=== PATIENT | male | born 1970 | race Caucasian/White ===

== ENCOUNTER 2017-02-04 11:11 | Emergency (ER) | payer BC ==
[2017-02-04 12:22] VITALS: RESP 16
[2017-02-04] MEDS ORDERED: SODIUM CHLORIDE 0.9% 1,000 ML IV STA (12:37)
[2017-02-04 12:51] LABS: Aty Lym Flag Marked; CH 30.8; CHCM 33.8; HCT 46.6 % (39.0-53.0); HDW 2.25; HGB 15.4 gm/dL (13.0-17.5); MCH 30.1 pg (25.0-35.0); MCV 91.4 fL (80.0-100.0); MPO Flag Slight; Mean Platelet Volume 6.6; RBC 5.09 m/uL (4.30-5.90); WBC 7.3 k/uL (3.8-10.6)
--- NOTE | 2017-02-04 13:00 | ED ---
General Adult HPI - General Chief complaint: Abdominal Pain Stated complaint: kidney stone Time Seen by Provider: 02/04/17 12:32 Source: patient, RN notes reviewed Mode of arrival: ambulatory Limitations: no limitations - History of Present Illness Initial comments: Patient is a 46-year-old male with significant past medical history for kidney stones, who presents emergency room today with chief complaint of left sided flank pain. He does admit that he's had some pain that increased last night and burning sensation coming around to the front side of the abdomen. He does admit some nausea. He states only symptoms are consistent with kidney stones that is had in the past. He denies any other complaints associated symptoms. He states currently comfortable at this time. - Related Data Previous Rx's Medication Instructions Recorded Tamsulosin [Flomax] 0.4 mg PO DAILY #14 cap 02/04/17 Allergies Allergy/AdvReac Type Severity Reaction Status Date / Time No Known Allergies Allergy Verified 02/04/17 13:39 Review of Systems ROS Statement: Those systems with pertinent positive or pertinent negative responses have been documented in the HPI. ROS Other: All systems not noted in ROS Statement are negative. Past Medical History Additional Past Medical History / Comment(s): kidney stone History of Any Multi-Drug Resistant Organisms: None Reported Additional Past Surgical History / Comment(s): kidney stone removal Past Psychological History: No Psychological Hx Reported Smoking Status: Never smoker Past Alcohol Use History: Occasional Past Drug Use History: None Reported General Exam - General Exam Comments Initial Comments: General: The patient is awake and alert, in no distress, and does not appear acutely ill. Eye: Pupils are equal, round and reactive to light, extra-ocular movements are intact. No nystagmus. There is normal conjunctiva bilaterally. No signs of icterus. Ears, nose, mouth and throat: There are moist mucous membranes and no oral lesions. Neck: The neck is supple, there is no tenderness or JVD. Cardiovascular: There is a regular rate and rhythm. No murmur, rub or gallop is appreciated. Respiratory: Lungs are clear to auscultation, respirations are non-labored, breath sounds are equal. No wheezes, stridor, rales, or rhonchi. Gastrointestinal: Soft, non-distended, non-tender abdomen without masses or organomegaly noted. There is no rebound or guarding present. No CVA tenderness. Bowel sounds are unremarkable. Musculoskeletal: Normal ROM, no tenderness. Strength 5/5. Sensation intact. Pulses equal bilaterally 2+. Neurological: A&O x 3. CN II-XII intact, There are no obvious motor or sensory deficits. Coordination appears grossly intact. Speech is normal. Skin: Skin is warm and dry and no rashes or lesions are noted. Psychiatric: Cooperative, appropriate mood & affect, normal judgment. Limitations: no limitations Course Vital Signs 02/04/17 02/04/17 02/04/17 11:24 12:21 13:00 Temperature 98.6 F 98.0 F 98.2 F Pulse Rate 70 65 62 Respiratory 18 16 16 Rate Blood Pressure 133/79 134/73 141/89 O2 Sat by Pulse 98 97 99 Oximetry Medical Decision Making - Medical Decision Making Patient reexamined at this time shows no signs of distress. He is resting comfortably. He states not had any pain here today but was worse last night. States symptoms are consistent with kidney stones that is had in the past. States she's had multiple missing urologist. Patient's x-ray reviewed shows phlebolith in the lower pelvis. Patient's labs been reviewed and shows small white blood in the urine and no sign of infection. Remaining labs unremarkable. Patient will be discharged home she'll Flomax. He states he does not want any pain medication he uses [id number] as needed. Advised follow-up with his urologist or return here to the emergency room symptoms increase or worsen. - Lab Data Result diagrams: 02/04/17 12:45 02/04/17 12:45 Lab Results 02/04/17 02/04/17 02/04/17 Range/Units 12:45 12:45 12:45 WBC 7.3 (3.8-10.6) k/uL RBC 5.09 (4.30-5.90) m/uL Hgb 15.4 (13.0-17.5) gm/dL Hct 46.6 (39.0-53.0) % MCV 91.4 (80.0-100.0) fL MCH 30.1 (25.0-35.0) pg MCHC 33.0 (31.0-37.0) g/dL RDW 13.0 (11.5-15.5) % Plt Count 270 (150-450) k/uL Neutrophils % (Manual) 77.0 % Lymphocytes % (Manual) 15.0 % Monocytes % (Manual) 7.0 % Eosinophils % (Manual) 1.0 % Neutrophils # (Manual) 5.6 (1.3-7.7) k/uL Lymphocytes # (Manual) 1.1 (1.0-4.8) k/uL Monocytes # (Manual) 0.5 (0-1.0) k/uL Eosinophils # (Manual) 0.1 (0-0.7) k/uL Nucleated RBCs 0 (0-0) /100 WBC Manual Slide Review Performed RBC Morphology Normal Sodium 142 (137-145) mmol/L Potassium 4.1 (3.5-5.1) mmol/L Chloride 106 (98-107) mmol/L Carbon Dioxide 25 (22-30) mmol/L Anion Gap 11 mmol/L BUN 9 (9-20) mg/dL Creatinine 0.89 (0.66-1.25) mg/dL Est GFR (MDRD) Af Amer >60 (>60 ml/min/1.73 sqM) Est GFR (MDRD) Non-Af >60 (>60 ml/min/1.73 sqM) Glucose 89 (74-99) mg/dL Calcium 9.3 (8.4-10.2) mg/dL Total Bilirubin 1.2 (0.2-1.3) mg/dL AST 30 (17-59) U/L ALT 47 (21-72) U/L Alkaline Phosphatase 79 (38-126) U/L Total Protein 7.7 (6.3-8.2) g/dL Albumin 4.4 (3.5-5.0) g/dL Amylase 43 (30-110) U/L Lipase 86 (23-300) U/L Urine Color Light Yellow Urine Appearance Clear (Clear) Urine pH 5.0 (5.0-8.0) Ur Specific [place] 1.003 (1.001-1.035) Urine Protein Negative (Negative) Urine Glucose (UA) Negative (Negative) Urine Ketones Negative (Negative) Urine Blood Small H (Negative) Urine Nitrite Negative (Negative) Urine Bilirubin Negative (Negative) Urine Urobilinogen <2.0 (<2.0) mg/dL Ur Leukocyte Esterase Negative (Negative) Urine RBC <1 (0-5) /hpf Urine WBC 1 (0-5) /hpf Disposition Clinical Impression: Kidney stone Disposition: HOME SELF-CARE Condition: Good Instructions: Kidney Stones (ED) Additional Instructions: Please use medication as discussed. Please follow-up with urology/family doctor in the next 2 days of symptoms have not improved. Please return to emergency room if the symptoms increase or worsen or for any other concerns. Prescriptions: Tamsulosin [Flomax] 0.4 mg PO DAILY #14 cap Referrals: Alex Chacon MD [Primary Care Provider] - 1-2 days Mango Smith MD [STAFF PHYSICIAN] - 1-2 days Time of Disposition: 13:42
[2017-02-04 13:03] LABS: ALT 47 U/L (21-72); AST 30 U/L (17-59); Alkaline Phosphatase 79 U/L (38-126); Amylase 43 U/L (30-110); Anion Gap 11 mmol/L; Blood Urea Nitrogen 9 mg/dL (9-20); Calcium 9.3 mg/dL (8.4-10.2); Carbon Dioxide 25 mmol/L (22-30); Chloride 106 mmol/L (98-107); Glucose 89 mg/dL (74-99); Non-African American GFR(MDRD) >60 (>60 ml/min/1.73 sqM); Potassium 4.1 mmol/L (3.5-5.1); Sodium 142 mmol/L (137-145); Total Bilirubin 1.2 mg/dL (0.2-1.3); Total Protein 7.7 g/dL (6.3-8.2)
[2017-02-04 13:05] LABS: Appearance,Urine Clear (Clear); Bilirubin,Urine Negative (Negative); Glucose,Urine (UA) Negative (Negative); Ketones,Urine Negative (Negative); Leukocyte Esterase,Urine Negative (Negative); Nitrite,Urine Negative (Negative); Particle Count 644; Protein,Urine Negative (Negative); RBC,Urine <1 /hpf (0-5); Specific Gravity,Urine 1.003 (1.001-1.035); UA Billing (MACRO vs. MICRO) MICRO; Urobilinogen,Urine <2.0 mg/dL (<2.0); WBC,Urine 1 /hpf (0-5)
[2017-02-04 13:06] LABS: Add Differential Manual Differential
[2017-02-04 13:09] LABS: Manual Review Performed; Nucleated Red Blood Cells 0 /100 WBC (0-0); Total Cells Counted 100
[2017-02-04 13:10] LABS: RBC Morphology Normal
--- NOTE | 2017-02-04 13:21 | XR ---
EXAMINATION TYPE: XR KUB DATE OF EXAM: 02/04/2017 CLINICAL HISTORY: Left-sided abdominal pain, history of kidney stones. TECHNIQUE: 2 upright KUB images of the abdomen are obtained COMPARISON: Abdominal x-ray May 06, 2009. FINDINGS: Scattered gas is seen in non-distended small bowel loops. Gas and fecal material is seen in non-distended colon. Left 4 mm pelvic phlebolith is stable. There is no visceromegaly, pneumoperit oneum, or abnormal calcification appreciated. The lung bases are clear and the osseous structures a re intact. IMPRESSION: Overall nonobstructive bowel gas pattern. No definite nephrolithiasis.
[2017-02-04 14:11] VITALS: BP 136/84; PULSE 68; TEMP 98
== END 2017-02-04 14:09 | disposition home or self-care (01) ==
LOC: EC 11:11
DX: N20.0 Calculus of kidney (principal); R11.0 Nausea
CPT/HCPCS: 36415; 74000; 80053; 81001; 82150; 83690; 85025; 87086; 96360; 96361; 99284

== ENCOUNTER 2019-05-27 09:33 | Inpatient (IN) | payer BC ==
[2019-05-27] MEDS ORDERED: ACETAMINOPHEN TAB 325 MG TAB PO STA (10:03)
[2019-05-27] MEDS ORDERED: SODIUM CHLORIDE 0.9% 1,000 ML IV ONE (10:08)
--- NOTE | 2019-05-27 10:41 | ED ---
Fever HPI <FreddySouleymane - Last Filed: 05/27/19 11:37> - General Source: patient Mode of arrival: ambulatory Limitations: no limitations <Esther Morales - Last Filed: 05/27/19 12:50> - General Chief Complaint: Fever Stated Complaint: FEVER Time Seen by Provider: 05/27/19 09:53 - History of Present Illness Initial Comments: 48yol male presents emergency department for evaluation of high fever for 5 day s. Patient states she has had a fever for the past 5 days. Patient states that they'll aching headache when the fever is high however when the temperature lower she states the headache is almost nonexistent. Patient states he has been unable to control the fever with large quantities of ibuprofen and Tylenol. Patient states that he has no chest pain shortness of breath. He denies any sore throat ear pain. Denies any rash. He states he is up-to-date on his vaccinations. Patient denies any recent travel. Patient denies hemoptysis leg swelling. Patient denies any focalizing symptoms the fever he states he does not understand the cause. Patient states he presented to urgent care Tuesday reduced was most likely viral and sent home with antibiotics. Patient denies any neck stiffness he denies any sensitivity to light or vomiting. Patient denies abdominal pain or diarrhea. Remaining review of system negative. Upon arrival patient appears well however febrile with elevation of heart rate. Took ibuprofen within last 4 hours. (Esther Morales) - Related Data Home Medications Medication Instructions Recorded Confirmed Acetaminophen Tab [Tylenol Tab] 1,000 mg PO Q6HR PRN 05/27/19 05/27/19 Cephalexin [Keflex] 500 mg PO TID 05/27/19 05/27/19 Ibuprofen [Motrin] 600 mg PO Q6H PRN 05/27/19 05/27/19 Allergies Allergy/AdvReac Type Severity Reaction Status Date / Time No Known Allergies Allergy Verified 05/27/19 10:10 Review of Systems ROS Other: All systems not noted in ROS Statement are negative. <Souleymane Hayes - Last Filed: 05/27/19 11:37> ROS Other: All systems not noted in ROS Statement are negative. <Esther Morales - Last Filed: 05/27/19 12:50> ROS Statement: Those systems with pertinent positive or pertinent negative responses have been documented in the HPI. Past Medical History Additional Past Medical History / Comment(s): kidney stone History of Any Multi-Drug Resistant Organisms: None Reported Additional Past Surgical History / Comment(s): kidney stone removal Past Psychological History: No Psychological Hx Reported Smoking Status: Never smoker Past Alcohol Use History: Occasional Past Drug Use History: None Reported <Esther Morales - Last Filed: 05/27/19 12:50> General Exam Limitations: no limitations <Esther Morales - Last Filed: 05/27/19 12:50> - General Exam Comments Initial Comments: General: The patient is awake and alert, in no distress, diaphoretic Eye: +3 mm pupils are equal, round and reactive to light, extra-ocular movements are intact. No nystagmus. There is normal conjunctiva bilaterally. No signs of icterus. No photophobia Ears, nose, mouth and throat: There are moist mucous membranes and no oral lesions. Oropharynx was not erythematous there is no tonsillar enlargement exudates or lesions. Uvula midline. Tympanic membranes are not erythematous or is no effusions bulging or retraction. No tenderness to palpation of the m astoid. No anterior cervical lymphadenopathy. No tripoding, no drooling. Neck: The neck is supple, there is no tenderness or JVD. No nuchal rigidity Cardiovascular: There is a regular rate and rhythm. No murmur, rub or gallop is appreciated. Respiratory: Lungs are clear to auscultation, respirations are non-labored, breath sounds are equal. No wheezes, stridor, rales, or rhonchi. No retractions or abdominal breathing. Gastrointestinal: Soft, non-distended, non-tender abdomen without masses or organomegaly noted. There is no rebound or guarding present. Bowel sounds are unremarkable. Musculoskeletal: Normal ROM, no tenderness. Strength 5/5. Sensation intact. Radial pulses equal bilaterally 2+. Neurological: A&O x 3. CN II-XII intact, There are no obvious motor or sensory deficits. Coordination appears grossly intact. Speech appears normal, no muffling. Skin: Skin is warm and dry and no rashes or lesions are noted. No extremity edema Psychiatric: Cooperative (CarmenKimberliEsther L) Course Vital Signs 05/27/19 09:39 Temperature 99.4 F Pulse Rate 104 H Respiratory 18 Rate Blood Pressure 124/82 O2 Sat by Pulse 97 Oximetry Medical Decision Making - Lab Data Result diagrams: 05/27/19 10:20 05/27/19 10:20 <Souleymane Hayes - Last Filed: 05/27/19 11:37> - Lab Data Result diagrams: 05/27/19 10:20 05/27/19 10:20 <Esther Morales - Last Filed: 05/27/19 12:50> - Medical Decision Making Patient reevaluated by myself, Dr. Hayes. Patient resting comfortably in bed. Patient is updated on results and plan. Case was discussed in detail with Dr. Valdez with cardiology. He does recommend admission and heparinization. He states echo can be done tomorrow. He agrees with routine treatment for pneum onia and pulmonary consult. He will consult. Dr. Palomino has been paged for admission. Patient has been made aware of chest x-ray findings and need for follow-up chest x-ray in the near future after discharge. Dr. Palomino was contacted, who will admit covering for Dr. Rodriguez. (Souleymane Hayes) Patient presents for high fever x 5 days. No other focalizing symptoms. Patient denied chest pain. I had concern for possible myocarditis/PNA given tachycardia and high fever history. PNA (+) on CXR. Troponin returned elevated. EKG septal changes no known cardiac history. No acute ST elevation. Low intenisty per cardiology request as they were consulted as soon as troponin returned elevated by my attending Dr. Hayes. Echo ordered. ID and pulmonology per Dr. Hayes. Cardiology evaluated patient in the ER. Patient admitted to floor after discussing results. Patient agreeable with care plan and admission. Rocephin and azithromycin started per admitting provider request. (Esther Morales) - Lab Data Lab Results 05/27/19 05/27/19 05/27/19 Range/Units 10:20 10:20 10:20 WBC 9.1 (3.8-10.6) k/uL RBC 4.90 (4.30-5.90) m/uL Hgb 14.7 (13.0-17.5) gm/dL Hct 43.3 (39.0-53.0) % MCV 88.4 (80.0-100.0) fL MCH 30.1 (25.0-35.0) pg MCHC 34.1 (31.0-37.0) g/dL RDW 12.9 (11.5-15.5) % Plt Count 235 (150-450) k/uL Neutrophils % (Manual) 76 % Band Neutrophils % 3 % Lymphocytes % (Manual) 11 % Monocytes % (Manual) 10 % Neutrophils # (Manual) 7.10 (1.3-7.7) k/uL Lymphocytes # (Manual) 1.00 (1.0-4.8) k/uL Monocytes # (Manual) 0.91 (0-1.0) k/uL Nucleated RBCs 0 (0-0) /100 WBC Manual Slide Review Performed RBC Morphology Normal PT (9.0-12.0) sec INR (<1.2) APTT (22.0-30.0) sec Sodium 137 (137-145) mmol/L Potassium 5.0 (3.5-5.1) mmol/L Chloride 103 (98-107) mmol/L Carbon Dioxide 19 L (22-30) mmol/L Anion Gap 15 mmol/L BUN 12 (9-20) mg/dL Creatinine 1.04 (0.66-1.25) mg/dL Est GFR (CKD-EPI)AfAm >90 (>60 ml/min/1.73 sqM) Est GFR (CKD-EPI)NonAf 86 (>60 ml/min/1.73 sqM) Glucose 106 H (74-99) mg/dL Plasma Lactic Acid Jak 1.1 (0.7-2.0) mmol/L Calcium 9.0 (8.4-10.2) mg/dL Total Bilirubin 1.5 H (0.2-1.3) mg/dL AST 60 H (17-59) U/L ALT 23 (21-72) U/L Alkaline Phosphatase 90 (38-126) U/L Troponin I (0.000-0.034) ng/mL Total Protein 8.4 H (6.3-8.2) g/dL Albumin 4.2 (3.5-5.0) g/dL Urine Color Urine Appearance (Clear) Urine pH (5.0-8.0) Ur Specific [place] (1.001-1.035) Urine Protein (Negative) Urine Glucose (UA) (Negative) Urine Ketones (Negative) Urine Blood (Negative) Urine Nitrite (Negative) Urine Bilirubin (Negative) Urine Urobilinogen (<2.0) mg/dL Ur Leukocyte Esterase (Negative) Urine RBC (0-5) /hpf Urine WBC (0-5) /hpf Ur Squamous Epith Cells (0-4) /hpf Urine Bacteria (None) /hpf Urine Mucus (None) /hpf Influenza Type A RNA (Not Detectd) Influenza Type B (PCR) (Not Detectd) Group A Strep Rapid (Negative) 05/27/19 05/27/19 05/27/19 Range/Units 10:20 10:20 10:20 WBC (3.8-10.6) k/uL RBC (4.30-5.90) m/uL Hgb (13.0-17.5) gm/dL Hct (39.0-53.0) % MCV (80.0-100.0) fL MCH (25.0-35.0) pg MCHC (31.0-37.0) g/dL RDW (11.5-15.5) % Plt Count (150-450) k/uL Neutrophils % (Manual) % Band Neutrophils % % Lymphocytes % (Manual) % Monocytes % (Manual) % Neutrophils # (Manual) (1.3-7.7) k/uL Lymphocytes # (Manual) (1.0-4.8) k/uL Monocytes # (Manual) (0-1.0) k/uL Nucleated RBCs (0-0) /100 WBC Manual Slide Review RBC Morphology PT (9.0-12.0) sec INR (<1.2) APTT (22.0-30.0) sec Sodium (137-145) mmol/L Potassium (3.5-5.1) mmol/L Chloride (98-107) mmol/L Carbon Dioxide (22-30) mmol/L Anion Gap mmol/L BUN (9-20) mg/dL Creatinine (0.66-1.25) mg/dL Est GFR (CKD-EPI)AfAm (>60 ml/min/1.73 sqM) Est GFR (CKD-EPI)NonAf (>60 ml/min/1.73 sqM) Glucose (74-99) mg/dL Plasma Lactic Acid Jak (0.7-2.0) mmol/L Calcium (8.4-10.2) mg/dL Total Bilirubin (0.2-1.3) mg/dL AST (17-59) U/L ALT (21-72) U/L Alkaline Phosphatase (38-126) U/L Troponin I (0.000-0.034) ng/mL Total Protein (6.3-8.2) g/dL Albumin (3.5-5.0) g/dL Urine Color Dark Yellow Urine Appearance Cloudy (Clear) Urine pH 6.0 (5.0-8.0) Ur Specific [place] 1.049 H (1.001-1.035) Urine Protein 3+ H (Negative) Urine Glucose (UA) Negative (Negative) Urine Ketones 2+ H (Negative) Urine Blood Negative (Negative) Urine Nitrite Negative (Negative) Urine Bilirubin 1+ H (Negative) Urine Urobilinogen 8.0 (<2.0) mg/dL Ur Leukocyte Esterase Negative (Negative) Urine RBC 1 (0-5) /hpf Urine WBC 10 H (0-5) /hpf Ur Squamous Epith Cells 1 (0-4) /hpf Urine Bacteria Occasional H (None) /hpf Urine Mucus Many H (None) /hpf Influenza Type A RNA Not Detected (Not Detectd) Influenza Type B (PCR) Not Detected (Not Detectd) Group A Strep Rapid Negative (Negative) 05/27/19 05/27/19 Range/Units 10:20 10:20 WBC (3.8-10.6) k/uL RBC (4.30-5.90) m/uL Hgb (13.0-17.5) gm/dL Hct (39.0-53.0) % MCV (80.0-100.0) fL MCH (25.0-35.0) pg MCHC (31.0-37.0) g/dL RDW (11.5-15.5) % Plt Count (150-450) k/uL Neutrophils % (Manual) % Band Neutrophils % % Lymphocytes % (Manual) % Monocytes % (Manual) % Neutrophils # (Manual) (1.3-7.7) k/uL Lymphocytes # (Manual) (1.0-4.8) k/uL Monocytes # (Manual) (0-1.0) k/uL Nucleated RBCs (0-0) /100 WBC Manual Slide Review RBC Morphology PT 10.7 (9.0-12.0) sec INR 1.0 (<1.2) APTT 28.0 (22.0-30.0) sec Sodium (137-145) mmol/L Potassium (3.5-5.1) mmol/L Chloride (98-107) mmol/L Carbon Dioxide (22-30) mmol/L Anion Gap mmol/L BUN (9-20) mg/dL Creatinine (0.66-1.25) mg/dL Est GFR (CKD-EPI)AfAm (>60 ml/min/1.73 sqM) Est GFR (CKD-EPI)NonAf (>60 ml/min/1.73 sqM) Glucose (74-99) mg/dL Plasma Lactic Acid Jak (0.7-2.0) mmol/L Calcium (8.4-10.2) mg/dL Total Bilirubin (0.2-1.3) mg/dL AST (17-59) U/L ALT (21-72) U/L Alkaline Phosphatase (38-126) U/L Troponin I 1.940 H* (0.000-0.034) ng/mL Total Protein (6.3-8.2) g/dL Albumin (3.5-5.0) g/dL Urine Color Urine Appearance (Clear) Urine pH (5.0-8.0) Ur Specific [place] (1.001-1.035) Urine Protein (Negative) Urine Glucose (UA) (Negative) Urine Ketones (Negative) Urine Blood (Negative) Urine Nitrite (Negative) Urine Bilirubin (Negative) Urine Urobilinogen (<2.0) mg/dL Ur Leukocyte Esterase (Negative) Urine RBC (0-5) /hpf Urine WBC (0-5) /hpf Ur Squamous Epith Cells (0-4) /hpf Urine Bacteria (None) /hpf Urine Mucus (None) /hpf Influenza Type A RNA (Not Detectd) Influenza Type B (PCR) (Not Detectd) Group A Strep Rapid (Negative) - EKG Data EKG Comments: Ventricular rate 96 bpm, IL interval 156 ms, QRS ration 90 ms, QT/QTC 374/472 this is normal sinus rhythm T wave abnormalities noted in septal leads. EKG is interpreted, reviewed by my attending provider as cardiology. (Esther Morales) Disposition <Souleymane Hayes - Last Filed: 05/27/19 11:37> Is patient prescribed a controlled substance at d/c from ED?: No Time of Disposition: 11:42 Decision to Admit Reason: Admit from EC Decision Date: 05/27/19 Decision Time: 11:42 <Esther Morales - Last Filed: 05/27/19 12:50> Clinical Impression: Myocarditis, Fever, Pneumonia, Elevated troponin Disposition: ADMITTED IP TO THIS HOSP Condition: Serious Referrals: Antione Noel DO [Primary Care Provider] - 1-2 days
--- NOTE | 2019-05-27 10:50 | XR ---
EXAMINATION TYPE: XR chest 2V DATE OF EXAM: 05/27/2019 HISTORY: Fever. REFERENCE: None. FINDINGS: There is a 4.3 cm masslike density in the suprahilar region on the left. The remainder the lungs are clear. Pleural spaces are clear. The heart is not enlarged. IMPRESSION: MASSLIKE DENSITY IN THE SUPRAHILAR REGION ON THE LEFT MAY REPRESENT PNEUMONIA. [facility] EXCLUDE UNDERLYING NEOPLASM.
[2019-05-27 10:53] LABS: ALT 23 U/L (21-72); AST 60 U/L (17-59); African American GFR (CKD) >90 (>60 ml/min/1.73 sqM); Albumin 4.2 g/dL (3.5-5.0); Alkaline Phosphatase 90 U/L (38-126); Anion Gap 15 mmol/L; Blood Urea Nitrogen 12 mg/dL (9-20); Carbon Dioxide 19 mmol/L (22-30); Chloride 103 mmol/L (98-107); Glucose 106 mg/dL (74-99); Sodium 137 mmol/L (137-145); Total Bilirubin 1.5 mg/dL (0.2-1.3); Total Protein 8.4 g/dL (6.3-8.2)
[2019-05-27 10:56] LABS: Appearance,Urine Cloudy (Clear); Bacteria,Urine Occasional /hpf; Bilirubin,Urine 1+ (Negative); Blood,Urine Negative (Negative); Color,Urine Dark Yellow; Glucose,Urine (UA) Negative (Negative); Ketones,Urine 2+ (Negative); Leukocyte Esterase,Urine Negative (Negative); Mucus,Urine Many /hpf; Nitrite,Urine Negative (Negative); Protein,Urine 3+ (Negative); RBC,Urine 1 /hpf (0-5); Squamous Epithelial Cell,Urine 1 /hpf (0-4); WBC,Urine 10 /hpf (0-5)
[2019-05-27 10:57] LABS: Prothrombin Time 10.7 sec (9.0-12.0)
[2019-05-27 10:58] LABS: Specific Gravity,Urine 1.049 (1.001-1.035)
[2019-05-27 11:13] LABS: HCT 43.3 % (39.0-53.0); HGB 14.7 gm/dL (13.0-17.5); MCH 30.1 pg (25.0-35.0); MCHC 34.1 g/dL (31.0-37.0); MCV 88.4 fL (80.0-100.0); Mean Platelet Volume 7.5; Platelet Count 235 k/uL (150-450); RDW 12.9 % (11.5-15.5); WBC 9.1 k/uL (3.8-10.6)
[2019-05-27] MEDS ORDERED: AZITHROMYCIN 500 MG in SODIUM CHLORIDE 0.9% 250 ML IVPB STA (11:40)
[2019-05-27] MEDS ORDERED: HEPARIN SODIUM,PORCINE 5,000 UNIT/ML 1 ML VIAL IV ONE (11:41)
[2019-05-27] MEDS ORDERED: HEPARIN SODIUM,PORCINE 5,000 UNIT/ML 1 ML VIAL IV PRN (11:41)
[2019-05-27] MEDS ORDERED: NALOXONE 0.4 MG/ML 1 ML VIAL IV PRN (11:54)
[2019-05-27 12:14] LABS: Band Neutrophils % 3 %; Monocytes # (M) 0.91 k/uL (0-1.0); Neutrophils % (M) 76 %; Nucleated Red Blood Cells 0 /100 WBC (0-0); Total Cells Counted 100
[2019-05-27] MEDS: HEPARIN SOD,PORK IN 0.45% NACL 25,000 UNIT in 0.45% NACL 1 250ML.BAG IV SCH (12:36)
[2019-05-27] MEDS: SODIUM CHLORIDE 0.9% 1,000 ML IV SCH (13:14)
--- NOTE | 2019-05-27 13:17 | CONS ---
CONSULTATION Mr. Landry is a 48-year-old male with no prior cardiac history who is quite active physically, works in construction who for the last 4 days has been complaining of fever up to 104. He was seen in a walk-in clinic yesterday, was started on antibiotics but persisted in having a temperature again this morning. Came into the emergency room. He has associated diaphoresis and chills. He has mild dyspnea. No significant cough. No wheezing. He has no chest discomfort. No dizziness or palpitation. No PND, orthopnea, or peripheral edema. He has no prior cardiac history or cardiac workup. In the emergency room, he was noted to have elevated troponin and an abnormal chest x-ray. His coronary risk factors are negative for hypertension, hyperlipidemia, and diabetes mellitus. He is a nonsmoker. MEDICATIONS: His medications at home included the antibiotics that was started yesterday in the form of Keflex 500 mg 3 times a day. REVIEW OF SYSTEMS: RESPIRATORY system: He has the temperature but no wheezing. No cough. No history of obstructive lung disease. GI system: No recent GI bleeding. No peptic ulcer disease. system: No dysuria or hematuria. Had a prior history of renal stone. NERVOUS SYSTEM: No stroke or seizure. SOCIAL HISTORY: Rare alcohol intake. Nonsmoker. PHYSICAL EXAMINATION: He is a 48-year-old male, alert, oriented, in no apparent distress. Blood pressure 124/80 with a heart rate in the 90s. HEAD: Normocephalic. Eyes: Sclerae anicteric. NECK: Good upstroke. No bruit. No jugular venous distention. LUNGS: Clear to auscultation. HEART: Regular rate and rhythm, S1, S2. No S3. No S4. No murmur or rub. ABDOMEN: Soft, nontender. Positive bowel sounds. No organomegaly. EXTREMITIES: No edema. Intact distal pulses. LAB DATA: Lab data revealed a hemoglobin of 14.7, white blood cell of 9.1, platelet count 235, BUN and creatinine 12 and 1.04, total bilirubin 1.5, AST of 60, troponin of 1.94. EKG revealed sinus mechanism with QS in V1 to V2 and poor R-wave progression. Chest x-ray revealed a suprahilar masslike density on the left side. IMPRESSION: 1. Febrile episode of unclear etiology with no symptoms of cough, but yet with an abnormal chest x-ray. Patient being treated for possible pneumonia. 2. Elevated troponin with no associated symptoms. Those findings could represent a type 2 presentation with no evidence to suggest acute ischemic event. 3. Elevated bilirubin of unclear etiology. RECOMMENDATIONS: From the cardiac standpoint, I will obtain echocardiogram with Doppler. I will obtain serial enzymes. I do not believe that we are dealing with a primary ischemic event. The patient will be seen by Dr. Ibarra regarding his pulmonary status and depending on the outcome of his testing, further recommendations will be made. I have discussed those findings with the patient and he is full understanding and agreement. Thank you for this consult. We will follow with you. CIERRAL / IJN: [id number] /
--- NOTE | 2019-05-27 14:25 | CT ---
EXAMINATION TYPE: CT chest wo con DATE OF EXAM: 05/27/2019 COMPARISON: None. HISTORY: Myocarditis CT DLP: 479.6 mGycm. Automated Exposure Control for Dose Reduction was Utilized. TECHNIQUE: CT scan of the thorax is performed without IV contrast. FINDINGS: There is patchy consolidation in the left upper and lower lobes. There is a small associate d pleural effusion. There is minimal atelectasis at the right lung base. The major bronchi are patent. There is no significant axillary or mediastinal adenopathy. I cannot exclude some left-sided lymph no ailyn in the left hilum. There is a small 6.6 mm pericardial effusion anteriorly. The heart is not enlarged. Visualized structures in the upper abdomen are unremarkable. No bony lesion is seen. IMPRESSION: 1. PATCHY CONSOLIDATION THROUGHOUT THE LEFT LUNG. 2. SMALL LEFT PLEURAL EFFUSION. 3. MINIMAL PERICARDIAL FLUID.
[2019-05-27] MEDS ORDERED: ONDANSETRON 4 MG/2 ML VIAL IVP PRN (14:46)
--- NOTE | 2019-05-27 15:25 | P.HPIM ---
History of Present Illness H&P Date: 05/27/19 48 years old male with no significant past medical history presents in with fever of 104 for the past 5 days associated with tiredness. Patient denies any shortness of breath, dizziness lightheadedness, nausea or vomiting cough or shortness of breath. He denies any close sick contacts or any recent travel history. 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 Vitals in the ER suggestive of 98.4 pulse of 97 respiratory rate 26 blood pressure 1:30/88. On evaluation of blood work patient has a WBC of 9.1 and creatinine 1.04 hemoglobin 14.7 initial troponin of 1.94 total bilirubin 1.5 AST 60. Chest x-ray suggestive 4.3 cm mass in the left lung. Computed tomography scan of the chest was ordered that suggested patchy consolidation in the left upper and lower lobe. A small 6.6 cm pericardial effusion is seen. EKG is positive for Q waves in the anterior leads and down T- wave flattening in in the anterior leads. Echocardiogram is ordered for tomorrow patient's placed on heparin drip. Rocephin and azithromycin initiated. Pulmonary consulted. Strep pneumonia and urinary antigen atenolol ordered Review of Systems Constitutional: Denies chills, endorses fever and lethargy Denies poor appetite, Denies weakness, Denies weight loss Eyes: denies decreased vision, denies diplopia, denies discharge, denies pain Ears: deny: decreased hearing Ears, nose, mouth and throat: Denies dental pain, Denies headache, Denies nasal discharge, Denies nose pain Cardiovascular: Denies chest pain, Denies decreased exercise tolerance, Denies edema, Denies high blood pressure, Denies irregular heart beat, Denies palpitations, Denies paroxysmal nocturnal dyspnea, Denies rapid heart beat, Denies shortness of breath Respiratory: Denies congestion, Denies cough, Denies cough with sputum, Denies dyspnea, Denies home oxygen, Denies wheezing Gastrointestinal: Denies abdominal pain, Denies change in bowel habits, Denies coffee ground emesis, Denies early satiety, Denies excessive gas, Denies hea rtburn, Denies hematemesis, Denies hematochezia, Denies loss of appetite, Denies nausea, Denies vomiting Genitourinary: Denies dysuria, Denies flank pain, Denies kidney stones, Denies menorrhagia, Denies urgency, Denies urinary frequency Musculoskeletal: Denies gait dysfunction, Denies limitation of motion, Denies morning stiffness, Denies muscle cramps Integumentary: Denies rash, Denies wounds, Denies brittle nails, Denies change in hair/nails, Denies darkening of skin Neurological: Denies balance difficulties, Denies change in speech, Denies double vision, Denies gait dysfunction, Denies loss of vision, Denies motor disturbance, Denies numbness, Denies paralysis, Denies paresthesias, Denies seizures Psychiatric: Denies anxiety, Denies depression Endocrine: Denies excessive sweating, Denies excessive thirst, Denies high blood sugars, Denies palpitations Hematologic/Lymphatic: Denies easy bruising, Denies lymphadenopathy Past Medical History Additional Past Medical History / Comment(s): kidney stone History of Any Multi-Drug Resistant Organisms: None Reported Additional Past Surgical History / Comment(s): kidney stone removal Past Psychological History: No Psychological Hx Reported Smoking Status: Never smoker Past Alcohol Use History: Occasional Past Drug Use History: None Reported Medications and Allergies Home Medications Medication Instructions Recorded Confirmed Type Acetaminophen Tab [Tylenol Tab] 1,000 mg PO Q6HR PRN 05/27/19 05/27/19 History Cephalexin [Keflex] 500 mg PO TID 05/27/19 05/27/19 History Ibuprofen [Motrin] 600 mg PO Q6H PRN 05/27/19 05/27/19 History Allergies Allergy/AdvReac Type Severity Reaction Status Date / Time No Known Allergies Allergy Verified 05/27/19 10:10 Physical Exam Vitals: Vital Signs Temp Pulse Pulse Resp BP BP Pulse Ox 05/27/19 14:08 98.6 F 98 16 128/85 99 05/27/19 13:12 98.4 F 05/27/19 12:40 99 24 141/89 96 05/27/19 12:30 97 26 H 130/88 96 05/27/19 12:20 92 24 130/88 96 05/27/19 12:10 100 25 H 130/88 97 05/27/19 12:00 98 20 129/91 97 05/27/19 11:50 98 29 H 129/91 95 05/27/19 11:40 95 24 129/91 96 05/27/19 11:30 98 30 H 133/87 96 05/27/19 11:20 85 29 H 133/87 96 05/27/19 11:17 89 37 H 05/27/19 09:39 99.4 F 104 H 18 124/82 97 Intake and Output 05/27/19 05/27/19 05/27/19 06:59 14:59 22:59 Other: Weight 88.451 kg - Constitutional General appearance: cooperative, no acute distress, obese - EENT Eyes: anicteric sclerae, PERRLA, normal appearance ENT: hearing grossly normal - Neck Neck: no lymphadenopathy, normal ROM, no other, no rigidity, no stridor, no thyromegaly - Respiratory Respiratory: bilateral: CTA, negative: diminished, dullness, rales, rhonchi - Cardiovascular Rhythm: regular Heart sounds: normal: S1, S2 Abnormal Heart Sounds: no systolic murmur, no diastolic murmur, no rub, S3 gallop, no S4 Gallop, no click, no other - Gastrointestinal General gastrointestinal: normal bowel sounds, soft - Integumentary Integumentary: no rash - Neurologic Neurologic: CNII-XII intact - Musculoskeletal Musculoskeletal: gait normal, strength equal bilaterally - Psychiatric Psychiatric: A&O x's 3, appropriate affect Results CBC & Chem 7: 05/27/19 10:20 05/27/19 10:20 Labs: Abnormal Lab Results - Last 24 Hours (Table) 05/27/19 05/27/19 05/27/19 Range/Units 10:20 10:20 10:20 Carbon Dioxide 19 L (22-30) mmol/L Glucose 106 H (74-99) mg/dL Total Bilirubin 1.5 H (0.2-1.3) mg/dL AST 60 H (17-59) U/L Creatine Kinase (55-170) U/L Troponin I 1.940 H* (0.000-0.034) ng/mL Total Protein 8.4 H (6.3-8.2) g/dL Ur Specific [place] 1.049 H (1.001-1.035) Urine Protein 3+ H (Negative) Urine Ketones 2+ H (Negative) Urine Bilirubin 1+ H (Negative) Urine WBC 10 H (0-5) /hpf Urine Bacteria Occasional H (None) /hpf Urine Mucus Many H (None) /hpf 05/27/19 Range/Units 10:20 Carbon Dioxide (22-30) mmol/L Glucose (74-99) mg/dL Total Bilirubin (0.2-1.3) mg/dL AST (17-59) U/L Creatine Kinase 214 H (55-170) U/L Troponin I (0.000-0.034) ng/mL Total Protein (6.3-8.2) g/dL Ur Specific [place] (1.001-1.035) Urine Protein (Negative) Urine Ketones (Negative) Urine Bilirubin (Negative) Urine WBC (0-5) /hpf Urine Bacteria (None) /hpf Urine Mucus (None) /hpf Thrombosis Risk Factor Assmnt - DVT/VTE Prophylaxis DVT/VTE Prophylaxis: Mechanical Prophylaxis ordered Assessment and Plan Plan: #1 sepsis secondary to community-acquired pneumonia. Computed tomography scan positive for left upper and lower consolidation Mycoplasma, Legionella, anterom edial, strep throat ordered. Pro-calcitonin ordered. CRP ordered. Continue IV fluids at 50 mL per hour pulmonary consult placed #2 acute troponinemia likely secondary to viral myocarditis/pericarditis repeat troponin every 6 hours. Elevated troponin with EKG changes consistent with myocarditis Echocardiogram ordered, cardiology consult placed EKG with positive Q waves. CT chest positive for small pericardial effusion continue heparin drip prophylactically until the embolism is ruled out #3 hyper bilirubinemia of unclear etiology patient is non-alcoholic. Ultrasound liver ordered to evaluate for fatty liver disease #4 DVT prophylaxis with SCDs #5 disposition patient may need at least 1-2 inpatient night for stabilization
--- NOTE | 2019-05-27 17:32 | US ---
EXAMINATION TYPE: US liver DATE OF EXAM: 05/27/2019 COMPARISON: CT, US CLINICAL HISTORY: hyperbilirubinemia; fever (patient stated took Tylenol x 5 days to reduce fever), h istory of renal stones EXAM MEASUREMENTS: Liver Length: 16.8 cm Gallbladder Wall: 0.2 cm CBD: 0.4 cm Right Kidney: 10.7 x 6.2 x 5.4 cm Pancreas: Obscured by bowel gas Liver: fatty liver with areas of focal fatty sparing in right lobe Gallbladder: wnl Evidence for sonographic Gilliam's sign: no CBD: wnl Right Kidney: wnl IMPRESSION: There is evidence of fatty infiltration of the liver. No gallstones or dilated ducts.
[2019-05-27] MEDS: ACETAMINOPHEN TAB 325 MG TAB PO PRN (19:54)
[2019-05-28] MEDS: ACETAMINOPHEN TAB 325 MG TAB PO PRN ×2 (02:44→15:31)
[2019-05-28 03:40] LABS: HCT 38.1 % (39.0-53.0); HGB 13.1 gm/dL (13.0-17.5); MCH 30.5 pg (25.0-35.0); MCHC 34.5 g/dL (31.0-37.0); MCV 88.3 fL (80.0-100.0); Mean Platelet Volume 6.4; Platelet Count 254 k/uL (150-450); RBC 4.31 m/uL (4.30-5.90); RDW 12.9 % (11.5-15.5)
[2019-05-28 03:48] LABS: African American GFR (CKD) >90 (>60 ml/min/1.73 sqM); Anion Gap 10 mmol/L; Blood Urea Nitrogen 8 mg/dL (9-20); Calcium 8.1 mg/dL (8.4-10.2); Carbon Dioxide 22 mmol/L (22-30); Chloride 104 mmol/L (98-107); Cholesterol 112 mg/dL (<200); Glucose 98 mg/dL (74-99); HDL Cholesterol 27 mg/dL (40-60); LDL Cholesterol,Calculated 58 mg/dL (0-99); Potassium 3.5 mmol/L (3.5-5.1); Sodium 136 mmol/L (137-145); Triglycerides 134 mg/dL (<150)
[2019-05-28 04:31] LABS: Neutrophils % (M) 75 %; Nucleated Red Blood Cells 0 /100 WBC (0-0); Total Cells Counted 100
[2019-05-28] MEDS: HEPARIN SOD,PORK IN 0.45% NACL 25,000 UNIT in 0.45% NACL 1 250ML.BAG IV SCH (06:40)
[2019-05-28] MEDS: ASPIRIN 81 MG PO SCH (08:54)
[2019-05-28] MEDS: SODIUM CHLORIDE 0.9% 1,000 ML IV SCH (08:55)
[2019-05-28] MEDS ORDERED: ASPIRIN 325 MG TAB PO SCH (09:00)
[2019-05-28] MEDS ORDERED: IPRATROPIUM-ALBUTEROL 3 ML NEB INHALATION PRN (09:56)
--- NOTE | 2019-05-28 10:37 | ECHOF ---
Referral Reason:fever, elevated troponin concern for myocarditis MEASUREMENTS -------- HEIGHT: 175.3 cm WEIGHT: 91.2 kg BP: 137/76 RVIDd: 3.3 cm (< 3.3) IVSd: 1.4 cm (0.6 - 1.1) LVIDd: 4.6 cm (3.9 - 5.3) LVPWd: 1.3 cm (0.6 - 1.1) IVSs: 1.8 cm LVIDs: 3.1 cm LVPWs: 1.9 cm LA Diam: 4.2 cm (2.7 - 3.8) LAESV Index (A-L): 26.78 ml/m Ao Diam: 3.3 cm (2.0 - 3.7) AV Cusp: 2.2 cm (1.5 - 2.6) MV EXCURSION: 26.030 mm (> 18.000) MV EF SLOPE: 219 mm/s (70 - 150) EPSS: 0.2 cm MV E Artur: 0.94 m/s MV DecT: 206 ms MV A Artur: 0.79 m/s MV E/A Ratio: 1.19 RAP: 5.00 mmHg RVSP: 24.18 mmHg TAPSE: 25.77 mm FINDINGS -------- Sinus rhythm. This was a technically adequate study. The left ventricular size is normal. There is moderate concentric left ventricular hypertrophy. O verall left ventricular systolic function is normal with, an EF between 55 - 60 %. The diastolic fi lling pattern is normal for the age of the patient 8.01. The right ventricle is mildly enlarged. Normal LA size by volume 22+/-6 ml/m2. The right atrial size is normal. Interatrial and interventricular septum intact. The aortic valve is trileaflet, and appears structurally normal. No aortic stenosis or regurgitation. The mitral valve is normal. Mild mitral regurgitation is present. Trace tricuspid regurgitation present. Right ventricular systolic pressure is normal at < 35 mmHg. The right ventricular systolic pressure, as measured by Doppler, is 24.18mmHg. There is no pulmonic regurgitation present. The aortic root size is normal. Normal inferior vena cava with normal inspiratory collapse consistent with estimated right atrial pre ssure of 5 mmHg. There is no pericardial effusion. CONCLUSIONS -------- 1. Sinus rhythm. 2. This was a technically adequate study. 3. The left ventricular size is normal. 4. There is moderate concentric left ventricular hypertrophy. 5. Overall left ventricular systolic function is normal with, an EF between 55 - 60 %. 6. The diastolic filling pattern is normal for the age of the patient 8.01 7. The right ventricle is mildly enlarged. 8. Normal LA size by volume 22+/-6 ml/m2. 9. The aortic valve is trileaflet, and appears structurally normal. No aortic stenosis or regurgitati on. 10. Mild mitral regurgitation is present. 11. Trace tricuspid regurgitation present. 12. Right ventricular systolic pressure is normal at < 35 mmHg. 13. There is no pulmonic regurgitation present. 14. The aortic root size is normal. 15. Normal inferior vena cava with normal inspiratory collapse consistent with estimated right atrial pressure of 5 mmHg. 16. There is no pericardial effusion. DIVIDER OPERATOR: Lashaun Caicedo RDCS
[2019-05-28] MEDS: AZITHROMYCIN 500 MG TAB PO SCH (11:05)
[2019-05-28] MEDS: guaiFENesin 600 MG TABLET.ER PO SCH ×2 (11:05→21:35)
[2019-05-28 11:38] LABS: Procalcitonin 2.02 ng/mL (0.02-0.09)
[2019-05-28 13:49] VITALS: BMI 29.7
--- NOTE | 2019-05-28 15:33 | P.PN ---
Subjective Progress Note Date: 05/28/19 48 years old male with no significant past medical history presents in with fever of 104 for the past 5 days associated with tiredness. Patient denies any shortness of breath, dizziness lightheadedness, nausea or vomiting cough or shortness of breath. He denies any close sick contacts or any recent travel history. 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 Vitals in the ER suggestive of 98.4 pulse of 97 respiratory rate 26 blood pressure 1:30/88. On evaluation of blood work patient has a WBC of 9.1 and creatinine 1.04 hemoglobin 14.7 initial troponin of 1.94 total bilirubin 1.5 AST 60. Chest x-ray suggestive 4.3 cm mass in the left lung. Computed tomography scan of the chest was ordered that suggested patchy consolidation in the left upper and lower lobe. A small 6.6 cm pericardial effusion is seen. EKG is positive for Q waves in the anterior leads and down T- wave flattening in in the anterior leads. Echocardiogram is ordered for tomorrow patient's placed on heparin drip. Rocephin and azithromycin initiated. Pulmonary consulted. Strep pneumonia and urinary antigen atenolol ordered 05/28: Patient states that he is feeling a little better from yesterday. He states he's had no fevers documented since 4 AM. He denies any dizziness or lightheadedness. He does have a cough with a small amount of phlegm production. He has not been able to collect a specimen for sputum as of yet. Echocardiogram reveals EF of 55-60%, trace tricuspid regurgitation. Liver ultrasound showed evidence of fatty infiltration. No gallstones or dilated ducts. Patient has been advised to loose weight to improve the fatty liver. Patient was seen yesterday by Dr. Valdez and acute coronary syndrome has been ruled out. Repeat troponins have been 1.050 and 0.968. Heterophile antibody negative. Heparin drip was discontinued. Sed rate elevated at 75, CRP elevated at 263, pro calcitonin elevated at 2.02, group A strep screen negative. C holesterol 112, triglyceride 134, LDL 58, HDL 27. Patient is also followed by pulmonary medicine. Will transfer patient to [facility] floor without telemetry. Anticipate possible discharge by tomorrow. Objective - Vital Signs Vital signs: Vital Signs Temp 99.0 F 05/28/19 08:00 Pulse 92 05/28/19 08:00 Resp 16 05/28/19 08:00 BP 125/75 05/28/19 08:00 Pulse Ox 99 05/28/19 08:00 Intake & Output 05/27/19 05/28/19 05/28/19 18:59 06:59 18:59 Intake Total 2150 415.922 125 Balance 2150 415.922 125 Weight 88.451 kg 91.2 kg Intake: IV 1550 200 Azithromycin 500 mg In 250 Sodium Chloride 0.9% 250 ml @ 250 mls/hr IVPB ONCE STA Rx#:[id number] Sodium Chloride 0.9% 1, 250 200 000 ml @ 50 mls/hr IV . Q20H KRUNAL Rx#:[id number] Sodium Chloride 0.9% 1, 1000 000 ml @ 999 mls/hr IV . Q1H1M ONE Rx#:[id number] cefTRIAXone 1 gm In 50 Sodium Chloride 0.9% 50 ml @ 100 mls/hr IVPB ONCE STA Rx#:[id number] Intake, IV Titration 215.922 Amount Heparin Sod,Pork in 0.45% 215.922 NaCl 25,000 unit In 0.45 % NaCl 1 250ml.bag @ 11.3 UNITS/KG/HR 9.995 mls/hr IV .Q24H KRUNAL Rx#: [id number] Oral 600 125 Other: # Voids 1 - Exam Review of Systems Constitutional: Denies chills, endorses fever and lethargy-improving Denies poor appetite, Denies weakness, Denies weight loss Eyes: denies decreased vision, denies diplopia, denies discharge, denies pain Ears: deny: decreased hearing Ears, nose, mouth and throat: Denies dental pain, Denies headache, Denies nasal discharge, Denies nose pain Cardiovascular: Denies chest pain, Denies decreased exercise tolerance, Denies edema, Denies high blood pressure, Denies irregular heart beat, Denies palp itations, Denies paroxysmal nocturnal dyspnea, Denies rapid heart beat, Denies shortness of breath Respiratory: Denies congestion, reports cough, reports cough with sputum, Denies dyspnea, Denies home oxygen, Denies wheezing Gastrointestinal: Denies abdominal pain, Denies change in bowel habits, Denies coffee ground emesis, Denies early satiety, Denies excessive gas, Denies heartburn, Denies hematemesis, Denies hematochezia, Denies loss of appetite, Denies nausea, Denies vomiting Genitourinary: Denies dysuria, Denies flank pain, Denies kidney stones, Denies menorrhagia, Denies urgency, Denies urinary frequency Musculoskeletal: Denies gait dysfunction, Denies limitation of motion, Denies morning stiffness, Denies muscle cramps Integumentary: Denies rash, Denies wounds, Denies brittle nails, Denies change in hair/nails, Denies darkening of skin Neurological: Denies balance difficulties, Denies change in speech, Denies double vision, Denies gait dysfunction, Denies loss of vision, Denies motor disturbance, Denies numbness, Denies paralysis, Denies paresthesias, Denies seizures Psychiatric: Denies anxiety, Denies depression Endocrine: Denies excessive sweating, Denies excessive thirst, Denies high blood sugars, Denies palpitations Hematologic/Lymphatic: Denies easy bruising, Denies lymphadenopathy - Constitutional General appearance: cooperative, no acute distress, obese, resting in bed - EENT Eyes: anicteric sclerae, PERRLA, normal appearance ENT: hearing grossly normal - Neck Neck: no lymphadenopathy, normal ROM, no other, no rigidity, no stridor, no thyromegaly - Respiratory Respiratory: bilateral: CTA, negative: diminished, dullness, rales, rhonchi - Cardiovascular Rhythm: regular Heart sounds: normal: S1, S2 Abnormal Heart Sounds: no systolic murmur, no diastolic murmur, no rub, S3 gallop, no S4 Gallop, no click, no other - Gastrointestinal General gastrointestinal: normal bowel sounds, soft - Integumentary Integumentary: no rash - Neurologic Neurologic: CNII-XII intact - Musculoskeletal Musculoskeletal: gait normal, strength equal bilaterally - Psychiatric Psychiatric: A&O x's 3, appropriate affect - Labs CBC & Chem 7: 05/28/19 03:14 05/28/19 03:14 Labs: Abnormal Lab Results - Last 24 Hours (Table) 05/27/19 05/27/19 05/27/19 Range/Units 10:20 10:20 10:20 Hct (39.0-53.0) % ESR (0-15) mm/hr APTT (22.0-30.0) sec Sodium (137-145) mmol/L Carbon Dioxide 19 L (22-30) mmol/L BUN (9-20) mg/dL Glucose 106 H (74-99) mg/dL Calcium (8.4-10.2) mg/dL Total Bilirubin 1.5 H (0.2-1.3) mg/dL AST 60 H (17-59) U/L Creatine Kinase (55-170) U/L Troponin I 1.940 H* (0.000-0.034) ng/mL C-Reactive Protein (<10.0) mg/L Total Protein 8.4 H (6.3-8.2) g/dL HDL Cholesterol (40-60) mg/dL Ur Specific [place] 1.049 H (1.001-1.035) Urine Protein 3+ H (Negative) Urine Ketones 2+ H (Negative) Urine Bilirubin 1+ H (Negative) Urine WBC 10 H (0-5) /hpf Urine Bacteria Occasional H (None) /hpf Urine Mucus Many H (None) /hpf 05/27/19 05/27/19 05/27/19 Range/Units 10:20 16:52 16:52 Hct (39.0-53.0) % ESR (0-15) mm/hr APTT (22.0-30.0) sec Sodium (137-145) mmol/L Carbon Dioxide (22-30) mmol/L BUN (9-20) mg/dL Glucose (74-99) mg/dL Calcium (8.4-10.2) mg/dL Total Bilirubin (0.2-1.3) mg/dL AST (17-59) U/L Creatine Kinase 214 H (55-170) U/L Troponin I 1.050 H* (0.000-0.034) ng/mL C-Reactive Protein 263.9 H (<10.0) mg/L Total Protein (6.3-8.2) g/dL HDL Cholesterol (40-60) mg/dL Ur Specific [place] (1.001-1.035) Urine Protein (Negative) Urine Ketones (Negative) Urine Bilirubin (Negative) Urine WBC (0-5) /hpf Urine Bacteria (None) /hpf Urine Mucus (None) /hpf 05/27/19 05/27/19 05/27/19 Range/Units 19:14 19:22 22:11 Hct (39.0-53.0) % ESR 75 H (0-15) mm/hr APTT 33.3 H (22.0-30.0) sec Sodium (137-145) mmol/L Carbon Dioxide (22-30) mmol/L BUN (9-20) mg/dL Glucose (74-99) mg/dL Calcium (8.4-10.2) mg/dL Total Bilirubin (0.2-1.3) mg/dL AST (17-59) U/L Creatine Kinase (55-170) U/L Troponin I 0.968 H* (0.000-0.034) ng/mL C-Reactive Protein (<10.0) mg/L Total Protein (6.3-8.2) g/dL HDL Cholesterol (40-60) mg/dL Ur Specific [place] (1.001-1.035) Urine Protein (Negative) Urine Ketones (Negative) Urine Bilirubin (Negative) Urine WBC (0-5) /hpf Urine Bacteria (None) /hpf Urine Mucus (None) /hpf 05/28/19 05/28/19 05/28/19 Range/Units 03:14 03:14 03:14 Hct 38.1 L (39.0-53.0) % ESR (0-15) mm/hr APTT 37.9 H (22.0-30.0) sec Sodium 136 L (137-145) mmol/L Carbon Dioxide (22-30) mmol/L BUN 8 L (9-20) mg/dL Glucose (74-99) mg/dL Calcium 8.1 L (8.4-10.2) mg/dL Total Bilirubin (0.2-1.3) mg/dL AST (17-59) U/L Creatine Kinase (55-170) U/L Troponin I (0.000-0.034) ng/mL C-Reactive Protein (<10.0) mg/L Total Protein (6.3-8.2) g/dL HDL Cholesterol 27 L (40-60) mg/dL Ur Specific [place] (1.001-1.035) Urine Protein (Negative) Urine Ketones (Negative) Urine Bilirubin (Negative) Urine WBC (0-5) /hpf Urine Bacteria (None) /hpf Urine Mucus (None) /hpf Microbiology - Last 24 Hours (Table) 05/27/19 10:20 Urine Culture - Preliminary Urine,Clean Catch 05/27/19 10:20 Group A Strep Throat Culture - Preliminary Throat Assessment and Plan Plan: #1 sepsis secondary to community-acquired pneumonia. Computed tomography scan positive for left upper and lower consolidation. Mycoplasma, Legionella pending. Pro-calcitonin CRP and sed rate all elevated. Strep screen negative. strep throat ordered. Pro-calcitonin ordered. CRP ordered. IV fluids will be transitioned to saline lock. Pulmonary consult. Continue azathioprine by 7 ceftriaxone #2 acute troponinemia. Echocardiogram ordered, cardiology consult appreciated. Acute coronary syndrome ruled out. Heparin drip has been discontinued. #3 hyper bilirubinemia secondary to fatty liver disease. #4 DVT prophylaxis with SCDs Discharge plan: Home tomorrow Impression and plan of care have been directed as dictated by the signing physician. Julissa Dockery nurse practitioner acting as scribe for signing physician.
--- NOTE | 2019-05-28 16:55 | P.CNPUL ---
History of Present Illness Consult date: 05/28/19 Requesting physician: Celestine Luevano Chief complaint: Febrile illness History of present illness: This is a 48-year-old white male patient of Dr. Noel with no significant medical history other than streaky of kidney stones in the past, who came into the emergency department on 05/27/2019 with complaints of high fever for 5 days. His fevers were as high as 103 and 104F, patient was experiencing headache when febrile, patient was taking large quantities of ibuprofen and Tylenol. Denied any shortness of breath, denied any cough or congestion, denied any sore throat or ear pain, denied any rash, no recent travel, no hemoptysis, no chest pain, no leg swelling, no nausea vomiting, no stiff neck. Patient presented to urgent care clinic on Tuesday and was told that the illness was most likely viral, but was sent home with antibiotics. On Tuesday on 05/27/2019 patient came in because of persistent febrile illness and tachycardia despite the ibuprofen, chest x-ray in the emergency department showed masslike density in the suprahilar region of the left lung. CT chest showed patchy consolidation throughout the left lung, small left pleural effusion and minimal pericardial fluid. Lab work was negative for any leukocytosis, white blood cell count was 9.1, coagulation profile was within normal limits, serum sodium was 137, potassium is 5.0, chloride was 103, CO2 is 19, B1 is 12 creatinine 1.04, plasma lactic acid was 1.1, bilirubin was elevated 1.5, AST was 60, ALT was 23, CK was 214, troponins were positive at 0.968, 1.050, and 1.940, patient was started on Rocephin and azithromycin, and we were asked to see the patient in regards to the left upper and lower lobe consolidation Review of Systems All systems: negative Constitutional: Reports chills, Reports fever Eyes: denies blurred vision, denies pain Ears, nose, mouth and throat: Denies headache, Denies sore throat Cardiovascular: Denies chest pain, Denies shortness of breath Respiratory: Denies cough Gastrointestinal: Denies abdominal pain, Denies diarrhea, Denies nausea, Denies vomiting Musculoskeletal: Denies myalgias Integumentary: Denies pruritus, Denies rash Neurological: Denies numbness, Denies weakness Psychiatric: Denies anxiety, Denies depression Endocrine: Denies fatigue, Denies weight change Past Medical History Additional Past Medical History / Comment(s): kidney stone History of Any Multi-Drug Resistant Organisms: None Reported Additional Past Surgical History / Comment(s): kidney stone removal Past Anesthesia/Blood Transfusion Reactions: No Reported Reaction Past Psychological History: No Psychological Hx Reported Smoking Status: Never smoker Past Alcohol Use History: Occasional Past Drug Use History: None Reported - Past Family History Father History Unknown: Yes Mother Family Medical History: No Reported History Medications and Allergies Home Medications Medication Instructions Recorded Confirmed Type Acetaminophen Tab [Tylenol Tab] 1,000 mg PO Q6HR PRN 05/27/19 05/27/19 History Cephalexin [Keflex] 500 mg PO TID 05/27/19 05/27/19 History Ibuprofen [Motrin] 600 mg PO Q6H PRN 05/27/19 05/27/19 History Allergies Allergy/AdvReac Type Severity Reaction Status Date / Time No Known Allergies Allergy Verified 05/27/19 10:10 Physical Exam Vitals: Vital Signs Temp Pulse Resp BP Pulse Ox 05/28/19 11:26 89 05/28/19 11:03 99.0 F 89 16 139/79 95 05/28/19 08:00 99.0 F 92 16 125/75 99 05/28/19 05:49 98.6 F 05/28/19 02:59 101.9 F H 104 H 16 137/76 97 05/27/19 23:17 99.6 F 98 16 124/70 97 05/27/19 19:59 102.9 F H 106 H 16 138/69 98 05/27/19 15:56 94 16 05/27/19 15:54 99.1 F 94 16 142/91 98 05/27/19 15:22 99 05/27/19 14:08 98.6 F 98 16 128/85 99 Intake and Output 05/27/19 05/28/19 05/28/19 22:59 06:59 14:59 Intake Total 2221.964 343.958 240 Balance 2221.964 343.958 240 Intake: IV 1550 200 Azithromycin 500 mg In 250 Sodium Chloride 0.9% 250 ml @ 250 mls/hr IVPB ONCE STA Rx#:[id number] Sodium Chloride 0.9% 1, 250 200 000 ml @ 50 mls/hr IV . Q20H KRUNAL Rx#:[id number] Sodium Chloride 0.9% 1, 1000 000 ml @ 999 mls/hr IV . Q1H1M ONE Rx#:[id number] cefTRIAXone 1 gm In 50 Sodium Chloride 0.9% 50 ml @ 100 mls/hr IVPB ONCE STA Rx#:[id number] Intake, IV Titration 71.964 143.958 Amount Heparin Sod,Pork in 0.45% 71.964 143.958 NaCl 25,000 unit In 0.45 % NaCl 1 250ml.bag @ 11.3 UNITS/KG/HR 9.995 mls/hr IV .Q24H KRUNAL Rx#: [id number] Oral 600 240 Other: # Voids 1 Weight 91.2 kg GENERAL EXAM: Alert, very pleasant, 48-year-old white male, on room air, comfortable in no apparent distress. HEAD: Normocephalic/atraumatic. EYES: Normal reaction of pupils, equal size. Conjunctiva pink, sclera white. NOSE: Clear with pink turbinates. THROAT: No erythema or exudates. NECK: No masses, no JVD, no thyroid enlargement, no adenopathy. CHEST: No chest wall deformity. Symmetrical expansion. LUNGS: Equal air entry with bronchial sounds bilaterally, and inspiratory crackles over posterior left upper and mid and lower lobes, but no wheeze, rhonchi or dullness. CVS: Regular rate and rhythm, normal S1 and S2, no gallops, no murmurs, no rubs ABDOMEN: Soft, nontender. No hepatosplenomegaly, normal bowel sounds, no guarding or rigidity. EXTREMITIES: No clubbing, no edema, no cyanosis, 2+ pulses and upper and lower extremities. MUSCULOSKELETAL: Muscle strength and tone normal. SPINE: No scoliosis or deformity SKIN: No rashes CENTRAL NERVOUS SYSTEM: Alert and oriented -3. No focal deficits, tone is normal in all 4 extremities. PSYCHIATRIC: Alert and oriented -3. Appropriate affect. Intact judgment and insight. Results - Laboratory Findings CBC and BMP: 05/28/19 03:14 05/28/19 03:14 PT/INR, D-dimer PT 10.7 sec (9.0-12.0) 05/27/19 10:20 INR 1.0 (<1.2) 05/27/19 10:20 Abnormal lab findings: Abnormal Labs 05/27/19 05/27/19 05/27/19 10:20 10:20 10:20 Hct ESR APTT Sodium Carbon Dioxide 19 L BUN Glucose 106 H Calcium Total Bilirubin 1.5 H AST 60 H Creatine Kinase Troponin I 1.940 H* C-Reactive Protein Total Protein 8.4 H HDL Cholesterol Procalcitonin Ur Specific [place] 1.049 H Urine Protein 3+ H Urine Ketones 2+ H Urine Bilirubin 1+ H Urine WBC 10 H Urine Bacteria Occasional H Urine Mucus Many H 05/27/19 05/27/19 05/27/19 10:20 16:52 16:52 Hct ESR APTT Sodium Carbon Dioxide BUN Glucose Calcium Total Bilirubin AST Creatine Kinase 214 H Troponin I 1.050 H* C-Reactive Protein 263.9 H Total Protein HDL Cholesterol Procalcitonin Ur Specific [place] Urine Protein Urine Ketones Urine Bilirubin Urine WBC Urine Bacteria Urine Mucus 05/27/19 05/27/19 05/27/19 19:14 19:22 19:22 Hct ESR 75 H APTT 33.3 H Sodium Carbon Dioxide BUN Glucose Calcium Total Bilirubin AST Creatine Kinase Troponin I C-Reactive Protein Total Protein HDL Cholesterol Procalcitonin 2.02 H Ur Specific [place] Urine Protein Urine Ketones Urine Bilirubin Urine WBC Urine Bacteria Urine Mucus 05/27/19 05/28/19 05/28/19 22:11 03:14 03:14 Hct 38.1 L ESR APTT Sodium 136 L Carbon Dioxide BUN 8 L Glucose Calcium 8.1 L Total Bilirubin AST Creatine Kinase Troponin I 0.968 H* C-Reactive Protein Total Protein HDL Cholesterol 27 L Procalcitonin Ur Specific [place] Urine Protein Urine Ketones Urine Bilirubin Urine WBC Urine Bacteria Urine Mucus 05/28/19 03:14 Hct ESR APTT 37.9 H Sodium Carbon Dioxide BUN Glucose Calcium Total Bilirubin AST Creatine Kinase Troponin I C-Reactive Protein Total Protein HDL Cholesterol Procalcitonin Ur Specific [place] Urine Protein Urine Ketones Urine Bilirubin Urine WBC Urine Bacteria Urine Mucus - Diagnostic Findings Chest x-ray: report reviewed, image reviewed CT scan - chest: report reviewed, image reviewed Assessment and Plan Plan: Assessment: #1. Left upper and lower patchy consolidation seen on the CT chest, and febrile illness, likely related to acute pneumonia, community acquired. Influenza was negative, group A rapid strep was negative, heterophile antibodies negative, urine legionella antigen is pending, pro-calcitonin is elevated at 2.02 #2. Elevated troponins, thought to be related to sepsis rather than acute ischemia #3. Lifetime nonsmoker #4. History of kidney stones Plan: Continue current antibiotic coverage, patient denies any significant pulmonary complaints, T-max in the last 24 hours was 101.9F, urine legionella antigen is pending, influenza screen was negative, heterophile antibodies were negative, will try to send a sputum for culture, chest x-ray CT chest have been reviewed by Dr. Peters, patient has been seen and evaluated by Dr. Peters. We'll continue to treat medically, and we'll obtain a follow-up chest x-ray tomorrow. May consider bronchoscopy with BAL if patient shows no improvement I performed a history & physical examination of the patient and discussed their management with my nurse practitioner, Sharmila Jimenez. I reviewed the nurse practitioner's note and agree with the documented findings and plan of care. Lung sounds are positive for rhonchi breath sounds and his paternal crackles over left lung. The findings and the impression was discussed with the patient. I attest to the documentation by the nurse practitioner. Time with Patient: Greater than 30
--- NOTE | 2019-05-28 20:21 | PN ---
PROGRESS NOTE Mr. Landry came in with a viral syndrome with high fever yesterday. His troponin profile does not suggest myocardial injury. He is in sinus rhythm, resting comfortably. His fever has come down. Vital signs are stable. S1, S2 heard normally. No significant murmurs. Lungs are clear. Abdomen and lower extremity exam is unchanged. This gentleman probably has a viral syndrome without any LV dysfunction. Echo revealed preserved systolic function without pericardial effusion. Patient can be moved to the medical floor. MMODL / IJN: [id number] /
[2019-05-29 05:28] VITALS: TEMP 98.1
[2019-05-29 07:29] LABS: HCT 37.1 % (39.0-53.0); MCH 30.1 pg (25.0-35.0); MCHC 35.1 g/dL (31.0-37.0); MCV 85.8 fL (80.0-100.0); Mean Platelet Volume 5.5; Platelet Count 326 k/uL (150-450); RBC 4.32 m/uL (4.30-5.90); RDW 12.7 % (11.5-15.5); WBC 6.4 k/uL (3.8-10.6)
[2019-05-29] MEDS: AZITHROMYCIN 500 MG TAB PO SCH (09:11)
[2019-05-29] MEDS: guaiFENesin 600 MG TABLET.ER PO SCH (09:11)
[2019-05-29] MEDS: ASPIRIN 81 MG PO SCH (09:11)
[2019-05-29 10:23] LABS: Eosinophils # (M) 0.13 k/uL (0-0.7); Lymphocytes # (M) 0.96 k/uL (1.0-4.8); Monocytes # (M) 0.77 k/uL (0-1.0); Neutrophils % (M) 71 %; Nucleated Red Blood Cells 0 /100 WBC (0-0); Total Cells Counted 100
--- NOTE | 2019-05-29 10:28 | XR ---
EXAMINATION TYPE: XR chest 2V DATE OF EXAM: 05/29/2019 COMPARISON: 05/27/2019 HISTORY: Pneumonia TECHNIQUE: Frontal and lateral views of the chest are obtained. FINDINGS: Left upper lobe patchy infiltrate persists although is slightly improved. Continued follow-up until r esolution advised. No evidence for pneumothorax. No pleural effusion. The cardiac silhouette size is within normal limits. The osseous structures are grossly intact. IMPRESSION: 1. Left upper lobe patchy infiltrate persists although is slightly improved. Continued follow-up unt il resolution advised.
[2019-05-29 12:25] VITALS: BP 133/88; PULSE 77; RESP 17
--- NOTE | 2019-05-29 12:46 | P.PN ---
Subjective Progress Note Date: 05/29/19 Principal diagnosis: Acute left upper and lower patchy consolidation secondary to community-acquired pneumonia. This is a 48-year-old white male patient of Dr. Noel with no significant medical history other than streaky of kidney stones in the past, who came into the emergency department on 05/27/2019 with complaints of high fever for 5 days. His fevers were as high as 103 and 104F, patient was experiencing headache when febrile, patient was taking large quantities of ibuprofen and Tylenol. Denied any shortness of breath, denied any cough or congestion, denied any sore throat or ear pain, denied any rash, no recent travel, no hemoptysis, no chest pain, no leg swelling, no nausea vomiting, no stiff neck. Patient presented to urgent care clinic on Tuesday and was told that the illness was most likely viral, but was sent home with antibiotics. On Tuesday on 05/27/2019 patient came in because of persistent febrile illness and tachycardia despite the ibuprofen, chest x-ray in the emergency department showed masslike density in the suprahilar region of the left lung. CT chest showed patchy consolidation throughout the left lung, small left pleural effusion and minimal pericardial fluid. Lab work was negative for any leukocytosis, white blood cell count was 9.1, coagulation profile was within normal limits, serum sodium was 137, potassium is 5.0, chloride was 103, CO2 is 19, B1 is 12 creatinine 1.04, plasma lactic acid was 1.1, bilirubin was elevated 1.5, AST was 60, ALT was 23, CK was 214, troponins were positive at 0.968, 1.050, and 1.940, patient was started on Rocephin and azithromycin, and we were asked to see the patient in regards to the left upper and lower lobe consolidation. The patient is seen today 05/29/2019 in follow-up on the regular medical floor. He is currently resting quite comfortably in bed. Awake and alert in no acute distress. He denies any shortness of breath, cough or congestion. He's been afebrile for the past 24 hours. Blood cultures reveal no growth. Urine culture reveals no growth. Strep throat culture reveals no growth. White count 6.4. Hemoglobin 13.0. He remains on ceftriaxone and azithromycin Objective - Vital Signs Vital signs: Vital Signs Temp 98.1 F 05/29/19 12:24 Pulse 77 05/29/19 12:24 Resp 17 05/29/19 12:24 BP 133/88 05/29/19 12:24 Pulse Ox 97 05/29/19 12:24 Intake & Output 05/28/19 05/29/19 05/29/19 18:59 06:59 18:59 Intake Total 640 480 Balance 640 480 Weight 91.2 kg Intake: Intake, IV Titration 400 Amount Sodium Chloride 0.9% 1, 350 000 ml @ 50 mls/hr IV . Q20H KRUNAL Rx#:[id number] cefTRIAXone 1 gm In 50 Sodium Chloride 0.9% 50 ml @ 100 mls/hr IVPB Q24HR KRUNAL Rx#:[id number] Oral 240 480 Other: Voiding Method Toilet Toilet # Voids 2 1 - Exam GENERAL EXAM: Alert, active, very pleasant 48 year old gentleman, comfortable in no apparent distress. On room air. HEAD: Normocephalic. EYES: Normal reaction of pupils, equal size. NOSE: Clear with pink turbinates. THROAT: No erythema or exudates. NECK: No masses, no JVD. CHEST: No chest wall deformity. LUNGS: Equal air entry with scattered rhonchi and left lung. CVS: S1 and S2 normal with no audible murmur, regular rhythm. ABDOMEN: No hepatosplenomegaly, normal bowel sounds, no guarding or rigidity. SPINE: No scoliosis or deformity SKIN: No rashes CENTRAL NERVOUS SYSTEM: No focal deficits, tone is normal in all 4 extremities. EXTREMITIES: There is no peripheral edema. No clubbing, no cyanosis. Peripheral pulses are intact. - Labs CBC & Chem 7: 05/29/19 07:12 05/28/19 03:14 Labs: Abnormal Lab Results - Last 24 Hours (Table) 05/29/19 Range/Units 07:12 Hct 37.1 L (39.0-53.0) % Lymphocytes # (Manual) 0.96 L (1.0-4.8) k/uL Microbiology - Last 24 Hours (Table) 05/27/19 10:20 Blood Culture - Preliminary Blood No Growth after 48 hours 05/27/19 10:20 Group A Strep Throat Culture - Final Throat 05/27/19 10:20 Urine Culture - Final Urine,Clean Catch Assessment and Plan Assessment: Assessment: #1. Left upper and lower patchy consolidation seen on the CT chest, and febrile illness, likely related to acute pneumonia, community acquired. Influenza was negative, group A rapid strep was negative, heterophile antibodies negative, urine legionella antigen is pending, pro-calcitonin is elevated at 2.02 #2. Elevated troponins, thought to be related to sepsis rather than acute ischemia #3. Lifetime nonsmoker #4. History of kidney stones Plan: The patient was seen and evaluated by Dr. Tejada. Chest x-ray and labs reviewed. There is slight improvement in the left upper lobe opacity. He is i mproved medically. Afebrile for 24 hours. Urine legionella antigen is pending. He remains on ceftriaxone and azithromycin. I, the cosigning physician, performed a history & physical examination of the patient. Lungs sounds with few scattered rhonchi left lung. Maintaining good O2 saturations in the 90s on room air. I discussed the assessment and plan of care with my nurse practitioner, Юлия Smith. I attest to the above note as dictated by her.
--- NOTE | 2019-05-29 13:30 | P.DS ---
Providers Date of admission: 05/27/19 11:54 Expected date of discharge: 05/29/19 Attending physician: Celestine Luevano MD Consults: 05/27/19 11:39 Consult Physician Urgent Consulting Provider: Dickson Valdez Consult Reason/Comments: Cardiac evaluation and treatment, suspected myocarditis Do you want consulting provider notified?: Already Contacted 05/27/19 12:17 Consult Physician Routine Consulting Provider: Sho Ibarra Consult Reason/Comments: myocarditis, PNA Do you want consulting provider notified?: Yes, Notify in am Primary care physician: [facility] Course: 48 years old male with no significant past medical history presents in with fever of 104 for the past 5 days associated with tiredness. Patient denies any shortness of breath, dizziness lightheadedness, nausea or vomiting cough or shortness of breath. He denies any close sick contacts or any recent travel history. 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 Vitals in the ER suggestive of 98.4 pulse of 97 respiratory rate 26 blood pressure 1:30/88. On evaluation of blood work patient has a WBC of 9.1 and creatinine 1.04 hemoglobin 14.7 initial troponin of 1.94 total bilirubin 1.5 AST 60. Chest x-ray suggestive 4.3 cm mass in the left lung. Computed tomography scan of the chest was ordered that suggested patchy consolidation in the left upper and lower lobe. A small 6.6 cm pericardial effusion is seen. EKG is positive for Q waves in the anterior leads and down T- wave flattening in in the anterior leads. Echocardiogram is ordered for tomorrow patient's placed on heparin drip. Rocephin and azithromycin initiated. Pulmonary consulted. Strep pneumonia and urinary antigen atenolol ordered 05/28: Patient states that he is feeling a little better from yesterday. He states he's had no fevers documented since 4 AM. He denies any dizziness or lightheadedness. He does have a cough with a small amount of phlegm production. He has not been able to collect a specimen for sputum as of yet. Echocardiogram reveals EF of 55-60%, trace tricuspid regurgitation. Liver ultrasound showed evidence of fatty infiltration. No gallstones or dilated ducts. Patient has been advised to loose weight to improve the fatty liver. Patient was seen yesterday by Dr. Valdez and acute coronary syndrome has been ruled out. Repeat troponins have been 1.050 and 0.968. Heterophile antibody negative. Heparin drip was discontinued. Sed rate elevated at 75, CRP elevated at 263, pro calcitonin elevated at 2.02, group A strep screen negative. Cholesterol 112, triglyceride 134, LDL 58, HDL 27. Patient is also followed by pulmonary medicine. Will transfer patient to [facility] floor without telemetry. Anticipate possible discharge by tomorrow. 05/29: The patient states his breathing and cough are low but better today. He still has a cough but no sputum production. Patient has been afebrile, heart rate 77, blood pressure 133/88, pulse ox 97% on room air. Patient will be discharged home today. We do recommend repeat CAT scan in 4 weeks for follow-up which may be arranged by PCP. Mycoplasma pneumoniae and Legionella testing are pending Discharge diagnoses: #1 sepsis secondary to community-acquired pneumonia. #2 acute troponinemia. Acute coronary syndrome ruled out. #3 hyper bilirubinemia secondary to fatty liver disease. Discharge plan: Home Impression and plan of care have been directed as dictated by the signing physician. Julissa Dockery nurse practitioner acting as scribe for signing physician. Patient Condition at Discharge: Good Plan - Discharge Summary Discharge Rx Participant: No New Discharge Prescriptions: New Levofloxacin [Levaquin] 500 mg PO DAILY #10 tab guaiFENesin [Mucinex] 1,200 mg PO Q12HR tablet.er Continue Acetaminophen Tab [Tylenol] 1,000 mg PO Q6HR PRN PRN Reason: Pain Or Fever > 100.5 Ibuprofen [Motrin] 600 mg PO Q6H PRN PRN Reason: Pain Or Fever > 100.5 Discontinued Cephalexin [Keflex] 500 mg PO TID Discharge Medication List Acetaminophen Tab [Tylenol] 1,000 mg PO Q6HR PRN 05/27/19 [History] Ibuprofen [Motrin] 600 mg PO Q6H PRN 05/27/19 [History] Levofloxacin [Levaquin] 500 mg PO DAILY #10 tab 05/29/19 [Rx] guaiFENesin [Mucinex] 1,200 mg PO Q12HR tablet.er 05/29/19 [Rx] Follow up Appointment(s)/Referral(s): Iveth Tejada MD [STAFF PHYSICIAN] - 06/08/19 1:30 pm Dickson Valdez MD [STAFF PHYSICIAN] - 06/08/19 9:45 am Antione Noel DO [Primary Care Provider] - 1 Week (Dr. Hall's office will be calling the patient with an appointment date and time. ) Patient Instructions/Handouts: Levofloxacin (By mouth), Myocarditis (DC), Pneumonia (DC) Activity/Diet/Wound Care/Special Instructions: Repeat CT chest in 4 weeks as follow up. Discharge Disposition: HOME SELF-CARE
[2019-05-30 05:48] LABS: Mycoplasma IgM Antibody 0.61 INDEX (<=0.90)
[2019-05-31 00:42] LABS: C. pnuemoniae IgM <1:10 titer (<1:10)
[2019-05-31 12:07] LABS: Lyme IgG/IgM 0.08 Index
== END 2019-05-29 15:00 | disposition home or self-care (01) | DRG 871 ==
LOC: EC 09:33 → 3SCARD 11:54 → 3NMEDONC 05-28 21:27
PROVIDERS: ADMIT Internal Medicine; ATTEND Internal Medicine
DX: A41.9 Sepsis, unspecified organism (principal); J18.9 Pneumonia, unspecified organism; K76.0 Fatty (change of) liver, not elsewhere classified; B34.9 Viral infection, unspecified; Z87.442 Personal history of urinary calculi
CPT/HCPCS: 36415; 71046; 71250; 76705; 80048; 80053; 80061; 81001; 82550; 82553; 83605; 83880; 84145; 84484; 85025; 85610; 85652; 85730; 86140; 86308; 86618; 86631; 86632; 86738; 87040; 87081; 87086; 87430; 87449; 87502; 93005; 93306; 94760; 96361; 96365; 96368; 96376; 99285